=== PATIENT | male | born 2000 | race Caucasian/White ===

== ENCOUNTER 2020-03-03 23:11 | Emergency (ER) | payer OTHER ==
[~2020-03-03] VITALS: Ht 175.3 cm; Wt 72.6 kg
[2020-03-03] MEDS ORDERED: BACTRIM DS TAB1 EACH PO (23:31)
== END 2020-03-03 23:46 | disposition home or self-care (01) ==
LOC: ED 23:11
DX: S30.861A Insect bite (nonvenomous) of abdominal wall, initial encounter (principal); L08.9 Local infection of the skin and subcutaneous tissue, unspecified; W57.XXXA Bitten or stung by nonvenomous insect and other nonvenomous arthropods, initial encounter; F17.200 Nicotine dependence, unspecified, uncomplicated
CPT/HCPCS: 99282

== ENCOUNTER 2020-07-23 10:01 | Emergency (ER) | payer OTHER ==
[~2020-07-23] VITALS: Ht 175.3 cm; Wt 77.1 kg
[~2020-07-23 10:01] MED LIST: BACTRIM DS TAB1 EACH PO
== END 2020-07-23 11:20 | disposition left against medical advice (07) ==
LOC: ED 10:01
DX: A54.9 Gonococcal infection, unspecified (principal); R31.0 Gross hematuria; F17.200 Nicotine dependence, unspecified, uncomplicated
CPT/HCPCS: 81001; 87088; 87491; 87591; 99283